=== PATIENT | male | born 1970 | race Caucasian/White ===

== ENCOUNTER → 2022-03-17 | Outpatient (CLI) | payer OTHER ==
[~2022-03-17] MED LIST: ASP81TEC PO; CINNAMON PO; MTF500T PO; NIAC250T17 PO; PRAV80TA2 PO; QUIN1TAB3 PO
[2022-03-17 14:37] VITALS: BP 130/70
--- NOTE | 2022-03-17 15:08 | Cardiology Stress Test Report ---
Stress Test Report Date of Procedure/Referring: Date of Procedure: Mar 17, 2022 PCP [facility] Admitting Physician Admitting Physician: Attending Physician: Andrea Emmanuel DO Indications: CP Baseline Heart Rate: 73 Baseline Blood Pressure: Blood Pressure Systolic: 130 Blood Pressure Diastolic: 70 Baseline EKG: Baseline EKG: NSR Summary/Conclusion: Summary: In summary, the patient started exercising with a baseline heart rate, blood pressure and EKG mentioned above Patient was able to exercise for a total of 3 minutes on Tristen protocol, METs 4.6 Maximum heart rate 158 Maximum blood pressure 252/67 Stress EKG, Minimal nondiagnostic changes Recovery EKG , Return to baseline Conclusion: 1. Good exercise tolerance for a total of 3 minutes on Tristen protocol, 4.6 METs, achieving 93 percent of maximum expected heart rate 2. Minimal nondiagnostic EKG changes with exercise returned to baseline during recovery 3. No arrhythmia was noted Copy Copies To 1: ANDREA EMMANUEL BASHAR J MD Mar 17, 2022 15:08
== END ==
LOC: CARD 14:17
PROVIDERS: ATTEND Pediatrics
DX: R07.89 Other chest pain (principal)
CPT/HCPCS: 93017

== ENCOUNTER 2022-11-25 15:24 | Inpatient (IN) | payer MEDICAID ==
[~2022-11-25] VITALS: Ht 175 cm; Wt 127.0 kg
[2022-11-25] MEDS ORDERED: fentaNYL INJ 100 MCG/2 ML AMP IVP ONE (15:45)
--- NOTE | 2022-11-25 15:57 | ED General ---
General Chief Complaint: Lower Extremity Stated Complaint: LEFT LEG PAIN/SWELLING/BLISTERS Nursing Triage Note: PT AMB TO TRIAGE. PT SENT FROM [facility]. PT HAS REDDEND L LOWER EXT. PT HAS REDDNESS, PAIN 10/10 SWELLING AND BLISTERS TO LOWER EXT. PT STATES HAS ALSO BEEN RUNNING A FEVER Source of Information: Patient, Other (Report and notes from clinic. Outside culture was reviewed. Verbal report was received from clinic staff.) Exam Limitations: No Limitations History of Present Illness Date Seen by Provider: Nov 25, 2022 Time Seen by Provider: 15:34 Initial Comments This 52-year-old gentleman presents to the emergency room as directed by the clinic for worsening cellulitis of the left leg. He reports pain and erythema started November 21. He has been treated with Bactrim without improvement. On Tuesday he had temperature of 101.9. He had subjective fever last night. He has marked edema of the left lower extremity and erythema up to the knee. He has some shallow slightly weeping wounds scattered over the lower extremity and a weeping wound on the tip of his great toe. There is a culture from drainage of the toe sent to us from the clinic. It grew Staph aureus with sensitivity pending and group A strep. Allergies and Home Medications Allergies Coded Allergies: codeine (Verified Allergy, Unknown, 10/11/08) Patient Home Medication List Home Medication List Reviewed: Yes Aspirin (Aspirin Ec 81 Mg) 81 Mg Tabec, 81 MG PO DAILY, (Reported) Entered as Reported by: BRADLY ALCARAZ on 07/15/101451 Metformin Hcl (Metformin 500 Mg) 500 Mg Tablet, 2 EACH PO BID WITH MEALS, (Reported) Entered as Reported by: BRADLY ALCARAZ on 07/15/101451 Niacin (Niacin) 250 Mg Tablet, 500 MG PO DAILY, (Reported) Entered as Reported by: BRADLY ALCARAZ on 07/15/101451 Pravastatin Sodium (Pravastatin Sodium) 80 Mg Tablet, 20 MG PO DAILY, (Reported) Entered as Reported by: BRADLY ALCARAZ on 07/15/101451 Quinapril/Hydrochlorothiazide (Accuretic 20-25 Mg Tablet) 1 Tab Tablet, 1 TAB PO DAILY, (Reported) Entered as Reported by: ABRAM RANDALL on 07/02/12 0910 [Cinnamon] , 500 MG PO BID, (Reported) Entered as Reported by: BRADLY ALCARAZ on 07/15/10 1452 Review of Systems Review of Systems Constitutional: see HPI EENTM: no symptoms reported Respiratory: no symptoms reported Cardiovascular: no symptoms reported Gastrointestinal: no symptoms reported Genitourinary: no symptoms reported Musculoskeletal: see HPI Skin: see HPI Psychiatric/Neurological: No Symptoms Reported Hematologic/Lymphatic: No Symptoms Reported Past Mzuceff-Trbgor-Qogefk Hx Patient Social History Tobacco Use?: No Substance use?: No Alcohol Use?: No Pt feels they are or have been: No Immunizations Up To Date First/Initial COVID19 Vaccinat: YES Second COVID19 Vaccination Liban: YES Past Medical History Surgery/Hospitalization HX: R ANKLE, L SHOULDER URETHRAL RELOCATION SURG. DIABETIC, HTN, NEUROPATHY Surgeries: Yes (Urethral relocation) Orthopedic (Left shoulder, right ankle) Respiratory: No Cardiac: Yes Hypertension Neurological: Yes Neuropathy Reproductive Disorders: No Genitourinary: Yes (Urethral relocation surgery) Gastrointestinal: No Musculoskeletal: No Endocrine: Yes Diabetes, Insulin dep, Diabetes, Non-Insulin dep HEENT: No Cancer: No Psychosocial: No Integumentary: Yes (History of cellulitis) Physical Exam-Suspected Sepsis Physical Exam Vital Signs Vital Signs - First Documented 11/25/22 11/25/22 15:35 18:39 Temp 36.7 Pulse 94 Resp 18 B/P (MAP) 114/69 (84) Pulse Ox 95 O2 Delivery Room Air Capillary Refill : Less Than 3 Seconds Blood Pressure Mean: 84 Height, Weight, BMI Height: '" Weight: lbs. oz. kg; 41.00 BMI Method: General Appearance: No Apparent Distress, WD/WN, Obese HEENT: PERRL/EOMI, Normal ENT Inspection Neck: Normal Inspection Respiratory: Lungs Clear, Normal Breath Sounds, No Accessory Muscle Use Cardiovascular: Regular Rate, Rhythm, No Murmur Extremity: Other (Marked edema and erythema of the left lower extremity below the knee with scattered shallow wounds with minor weeping. Pedal pulse palpable) Neurologic/Psychiatric: Alert, Oriented x3, No Motor/Sensory Deficits, Normal Mood/Affect Skin: normal color, warm/dry, other (See extremity exam) Focused Exam Lactate Level 11/25/22 17:00: Lactic Acid Level 1.92 Lactic Acid Level Progress/Results/Core Measures Suspected Sepsis SIRS Temperature: Pulse: 94 Respiratory Rate: 18 Laboratory Tests 11/25/22 16:04: White Blood Count 20.4H 11/26/22 05:05: White Blood Count 21.2H Blood Pressure 114 /69 Mean: 84 11/25/22 17:00: Lactic Acid Level 1.92 Laboratory Tests 11/25/22 16:04: Creatinine 2.06H, INR Comment 1.1, Platelet Count 331, Total Bilirubin 0.5 11/26/22 05:05: Creatinine 1.49H, Platelet Count 312 Results/Orders Lab Results Laboratory Tests Test 11/25/22 16:04 11/25/22 17:00 11/25/22 17:11 11/26/22 05:05 Range/Units White Blood Count 20.4 H 21.2 H 4.3-11.0 10^3/uL Red Blood Count 4.20 L 3.89 L 4.30-5.52 10^6/uL Hemoglobin 12.7 L 11.8 L 13.3-17.7 g/dL Hematocrit 37 L 34 L 40-54 % Mean Corpuscular Volume 88 88 80-99 fL Mean Corpuscular Hemoglobin 30 30 25-34 pg Mean Corpuscular Hemoglobin Concent 34 35 32-36 g/dL Red Cell Distribution Width 13.1 13.2 10.0-14.5 % Platelet Count 331 312 130-400 10^3/uL Mean Platelet Volume 10.6 11.9 9.0-12.2 fL Immature Granulocyte % (Auto) 1 1 % Neutrophils (%) (Auto) 86 H 86 H 42-75 % Lymphocytes (%) (Auto) 7 L 6 L 12-44 % Monocytes (%) (Auto) 6 5 0-12 % Eosinophils (%) (Auto) 0 1 0-10 % Basophils (%) (Auto) 0 1 0-10 % Neutrophils # (Auto) 17.4 H 18.2 H 1.8-7.8 10^3/uL Lymphocytes # (Auto) 1.5 1.3 1.0-4.0 10^3/uL Monocytes # (Auto) 1.2 H 1.1 H 0.0-1.0 10^3/uL Eosinophils # (Auto) 0.1 0.2 0.0-0.3 10^3/uL Basophils # (Auto) 0.1 0.1 0.0-0.1 10^3/uL Immature Granulocyte # (Auto) 0.2 H 0.3 H 0.0-0.1 10^3/uL Neutrophils % (Manual) 85 % Lymphocytes % (Manual) 9 % Monocytes % (Manual) 4 % Eosinophils % (Manual) 2 % Blood Morphology Comment NORMAL Prothrombin Time 14.1 12.2-14.7 SEC INR Comment 1.1 0.8-1.4 Activated Partial Thromboplast Time 38 H 24-35 SEC D-Dimer 1.77 H 0.00-0.49 UG/ML Sodium Level 138 133 L 135-145 MMOL/L Potassium Level 3.1 L 2.6 L 3.6-5.0 MMOL/L Chloride Level 94 L 94 L 98-107 MMOL/L Carbon Dioxide Level 32 27 21-32 MMOL/L Anion Gap 12 12 5-14 MMOL/L Blood Urea Nitrogen 29 H 26 H 7-18 MG/DL Creatinine 2.06 H 1.49 H 0.60-1.30 MG/DL Estimat Glomerular Filtration Rate 38 56 BUN/Creatinine Ratio 14 17 Glucose Level 159 H 199 H 70-105 MG/DL Calcium Level 10.3 H 9.2 8.5-10.1 MG/DL Corrected Calcium 10.5 H 8.5-10.1 MG/DL Total Bilirubin 0.5 0.1-1.0 MG/DL Aspartate Amino Transf (AST/SGOT) 24 5-34 U/L Alanine Aminotransferase (ALT/SGPT) 24 0-55 U/L Alkaline Phosphatase 75 40-136 U/L C-Reactive Protein High Sensitivity 30.75 H 28.92 H 0.00-0.50 MG/DL Total Protein 8.1 6.4-8.2 GM/DL Albumin 3.8 3.2-4.5 GM/DL Lactic Acid Level 1.92 0.50-2.00 MMOL/L Urine Color DARK YELLOW Urine Clarity CLEAR Urine pH 5.5 5-9 Urine Specific [place] >=1.030 1.016-1.022 Urine Protein 1+ H NEGATIVE Urine Glucose (UA) NEGATIVE NEGATIVE Urine Ketones NEGATIVE NEGATIVE Urine Nitrite NEGATIVE NEGATIVE Urine Bilirubin NEGATIVE NEGATIVE Urine Urobilinogen 1.0 < = 1.0 MG/DL Urine Leukocyte Esterase TRACE H NEGATIVE Urine RBC (Auto) NEGATIVE NEGATIVE Urine RBC NONE /HPF Urine WBC 5-10 H /HPF Urine Squamous Epithelial Cells 5-10 /HPF Urine Crystals PRESENT H /LPF Urine Amorphous Sediment MOD MIRIAM URATES H /LPF Urine Bacteria FEW H /HPF Urine Casts PRESENT /LPF Urine Hyaline Casts 0-2 H /LPF Urine Mucus SMALL H /LPF Urine Culture Indicated CULTURE PENDING My Orders Orders - GISEL REYNOSO MD Cbc With Automated Diff (11/25/22 15:34) Comprehensive Metabolic Panel (11/25/22 15:34) Hs C Reactive Protein (11/25/22 15:34) Ed Iv/Invasive Line Start (11/25/22 15:34) Us Venous Lower Ext Lt (11/25/22 15:45) Fentanyl Inj (Sublimaze Injection) (11/25/22 15:45) Manual Differential (11/25/22 16:04) Blood Culture (11/25/22 16:28) Sputum Culture (11/25/22 16:28) Urinalysis (11/25/22 16:28) Urine Culture (11/25/22 16:28) Protime With Inr (11/25/22 16:28) Partial Thromboplastin Time (11/25/22 16:28) Chest 1 View, Ap/Pa Only (11/25/22 16:28) Vital Signs Adult Sepsis Patie Q15M (11/25/22 16:28) O2 (11/25/22 16:28) Remove Rings In Anticipation O (11/25/22 16:28) Lactic Acid Analyzer (11/25/22 16:28) Fibrin Degradation Products (11/25/22 16:35) Ceftriaxone Iv/Im (Rocephin Iv/Im) (11/25/22 17:14) Potassium Chloride (Tablet) (Klor Con Ta (11/25/22 17:45) Ns Iv 1000 Ml (Sodium Chloride 0.9%) (11/25/22 17:45) Vancomycin Injection (Vancomycin Injecti (11/25/22 17:45) Medications Given in ED Vital Signs/I&O 11/25/22 11/25/22 11/26/22 19:50 23:36 03:36 Temp 37.1 36.3 Pulse 94 89 Resp 17 16 B/P (MAP) 117/58 (77) 138/74 (95) Pulse Ox 95 98 O2 Delivery Room Air Room Air Room Air Capillary Refill : Less Than 3 Seconds Blood Pressure Mean: 84 Progress Note : Progress Note Pain was treated with fentanyl. Septic work-up was pursued. Blood cultures and lactic acid were obtained. Rocephin was given for initial treatment of cellulitis and sepsis followed by vancomycin. Vancomycin was selected as the staff species did not yet have sensitivity results. Rocephin was selected because of the positive strep culture from the clinic. Labs were reviewed and interpreted in their entirety. Marked leukocytosis was noted with a WBC of 21. The remainder of the CBC was relatively unremarkable. D-dimer was elevated and was followed with venous ultrasound. No DVT was noted. CMP review revealed elevated creatinine of 2 with a reduced GFR. Baseline renal function is not known. Hydration was initiated with a liter of normal saline bolus. Lactic acid was normal. CRP was markedly elevated at 30. Potassium was low at 3.1 and oral replacement was ordered. Remainder of CMP was relatively unremarkable. Case was discussed with Dr. Hernandez, admitting physician from [facility]. Bridging orders were placed by me at admission. Patient elects full CODE STATUS. Diagnostic Imaging Diagonstic Imaging: Ultrasound Plain Films/CT/US/NM/MRI: leg Comments NAME: BRYAN KENYON MED REC#: [id number] PT STATUS: REG ER : 1970 PHYSICIAN: GISEL REYNOSO MD ADMIT DATE: 11/25/22/ER Draft Date of Exam:11/25/22 US VENOUS LOWER EXT LT INDICATION: Left leg pain and edema COMPARISON: None TECHNIQUE: Duplex, shelton-scale and color-flow imaging of the left lower extremity venous system was performed. FINDINGS: The common femoral vein, superficial femoral vein, profunda femoris, and popliteal veins are normal. These vessels show normal compressibility, color flow, and doppler augmentation. The deep calf veins, although not very well seen, demonstrate no distinct intraluminal thrombus. IMPRESSION: Negative venous Doppler of the left lower extremity. Dictated on workstation # [id number] Dict: 11/25/22 1722 Trans: 11/25/22 1724 CVB [id number] Interpreted by: KATRINA ABEBE MD Diagonstic Imaging: Xray Plain Films/CT/US/NM/MRI: chest Comments NAME: BRYAN KENYON MED REC#: [id number] PT STATUS: REG ER : 1970 PHYSICIAN: GISEL REYNOSO MD ADMIT DATE: 11/25/22/ER Signed Date of Exam:11/25/22 CHEST 1 VIEW, AP/PA ONLY INDICATION: Sepsis and leukocytosis. Frontal chest obtained at 5:00 p.m. FINDINGS: Heart and mediastinal silhouette are normal in appearance. The lungs are clear. There is no pneumothorax or pleural fluid. There is an old left clavicle fracture with hardware in place. There are old left-sided rib fractures. IMPRESSION: No acute process in the chest. Dictated by: Dictated on workstation # [id number] Dict: 11/25/221703 Trans: 11/25/221712 [id number] Interpreted by: ABILIO SOTO MD Electronically signed by: ABILIO SOTO MD 11/25/221712 Departure Communication (Admissions) Time/Spoke to Admitting Phy: 17:31 Dr. Hernandez Impression Primary Impression: Sepsis Qualified Codes: A40.0 - Sepsis due to Streptococcus, group A Additional Impressions: Left leg cellulitis Hypokalemia Renal insufficiency Disposition: ADMITTED INPATIENT Condition: Stable Admissions Decision to Admit Reason: Admit from ER (General) Decision to Admit/Date: Nov 25, 2022 Time/Decision to Admit Time: 17:31 Departure-Patient Inst. Referrals: [facility] (PCP/Family) Primary Care Physician Copy Copies To 1: [facility]/GISEL SILVA MD Nov 25, 2022 15:57
[2022-11-25 16:11] LABS: BASOPHILS # (AUTO) 0.1 10^3/uL (0.0-0.1); BASOPHILS % (AUTO) 0 % (0-10); EOSINOPHILS # (AUTO) 0.1 10^3/uL (0.0-0.3); EOSINOPHILS % (AUTO) 0 % (0-10); HEMATOCRIT 37 % (40-54); HEMOGLOBIN 12.7 g/dL (13.3-17.7); LYMPHOCYTES # (AUTO) 1.5 X 10^3 (1.0-4.0); LYMPHOCYTES % (AUTO) 7 % (12-44); MEAN CORPUSCULAR HEMOGLOBIN 30 pg (25-34); MEAN CORPUSCULAR HGB CONC 34 g/dL (32-36); MEAN CORPUSCULAR VOLUME 88 fL (80-99); MEAN PLATELET VOLUME 10.6 fL (9.0-12.2); MONOCYTES # (AUTO) 1.2 X 10^3 (0.0-1.0); MONOCYTES % (AUTO) 6 % (0-12); NEUTROPHILS # (AUTO) 17.4 X 10^3 (1.8-7.8); NEUTROPHILS % (AUTO) 86 % (42-75); PLATELET COUNT 331 10^3/uL (130-400); WHITE BLOOD COUNT 20.4 10^3/uL (4.3-11.0)
[2022-11-25 16:30] LABS: EOSINOPHILS % (MANUAL) 2 %; LYMPHOCYTES % (MANUAL) 9 %; MONOCYTES % (MANUAL) 4 %; NEUTROPHILS % (MANUAL) 85 %; RBC MORPH NORMAL
[2022-11-25 16:33] LABS: ALBUMIN 3.8 GM/DL (3.2-4.5); POTASSIUM 3.1 MMOL/L (3.6-5.0)
[2022-11-25 16:34] LABS: CALCIUM 10.3 MG/DL (8.5-10.1)
[2022-11-25 16:36] LABS: TOTAL PROTEIN 8.1 GM/DL (6.4-8.2)
[2022-11-25 16:38] LABS: BILIRUBIN,TOTAL 0.5 MG/DL (0.1-1.0)
[2022-11-25 16:39] LABS: CREATININE SERUM 2.06 MG/DL (0.60-1.30)
--- NOTE | 2022-11-25 17:07 | Diagnostic Imaging Report ---
INDICATION: Sepsis and leukocytosis. Frontal chest obtained at 5:00 p.m. FINDINGS: Heart and mediastinal silhouette are normal in appearance. The lungs are clear. There is no pneumothorax or pleural fluid. There is an old left clavicle fracture with hardware in place. There are old left-sided rib fractures. IMPRESSION: No acute process in the chest. Dictated by: Dictated on workstation # [id number]
[2022-11-25] MEDS ORDERED: cefTRIAXone IV/IM 1,000 MG in NS (IVPB) 50 ML IV STA (17:14)
[2022-11-25 17:23] LABS: BILIRUBIN,URINE NEGATIVE (NEGATIVE); CLARITY,URINE CLEAR; COLOR,URINE DARK YELLOW; GLUCOSE, URINE (UA) NEGATIVE (NEGATIVE); KETONES,URINE NEGATIVE (NEGATIVE); LEUKOCYTE ESTERASE ,URINE TRACE (NEGATIVE); NITRITE,URINE NEGATIVE (NEGATIVE); PH,URINE 5.5 (5-9); PROTEIN,URINE 1+ (NEGATIVE)
--- NOTE | 2022-11-25 17:24 | Diagnostic Imaging Report ---
INDICATION: Left leg pain and edema COMPARISON: None TECHNIQUE: Duplex, shelton-scale and color-flow imaging of the left lower extremity venous system was performed. FINDINGS: The common femoral vein, superficial femoral vein, profunda femoris, and popliteal veins are normal. These vessels show normal compressibility, color flow, and doppler augmentation. The deep calf veins, although not very well seen, demonstrate no distinct intraluminal thrombus. IMPRESSION: Negative venous Doppler of the left lower extremity. Dictated by: Dictated on workstation # [id number]
[2022-11-25 17:32] LABS: INR 1.1 (0.8-1.4); PROTHROMBIN TIME PATIENT 14.1 SEC (12.2-14.7)
[2022-11-25 17:35] LABS: AMORPHOUS SEDIMENT,UR MOD AMOR URATES /LPF; BACTERIA,URINE FEW /HPF; HYALINE CASTS, URINE 0-2 /LPF
[2022-11-25 17:35] LABS: FIBRIN DEGRADATION PRODUCTS 1.77 UG/ML (0.00-0.49)
[2022-11-25] MEDS ORDERED: KCL 10 MEQ TAB (MICRO K) PO ONE (17:45)
[2022-11-25] MEDS ORDERED: NS IV 1000 ML 1,000 ML IV SCH (17:45)
[2022-11-25 19:12] VITALS: BP 122/61
[2022-11-25] MEDS: VANCOMYCIN INJECTION 1,000 MG in NS (IVPB) 250 ML IV SCH ×2 (20:00→20:01)
[2022-11-25] MEDS ORDERED: HYDROcodone/APAP 5 MG/325 MG (LORTAB) TAB ONE (20:16)
[2022-11-25] MEDS: HYDROcodone/APAP 5 MG/325 MG (LORTAB) TAB PO PRN (20:17)
[2022-11-25] MEDS ORDERED: VANCOMYCIN INJECTION 0.1 MG in NS (IVPB) 250 ML IV SCH (22:15)
[2022-11-25] MEDS: LACTATED RINGERS 1,000 ML IV SCH (22:59)
[2022-11-25 23:36] VITALS: BP 117/58
[2022-11-26] MEDS: HYDROcodone/APAP 5 MG/325 MG (LORTAB) TAB PO PRN ×2 (01:10→08:46)
[2022-11-26 03:36] VITALS: BP 138/74
[2022-11-26] MEDS: LACTATED RINGERS 1,000 ML IV SCH (05:14)
--- NOTE | 2022-11-26 05:33 | History & Physical-Hospitalist ---
History of Present Illness HPI/Chief Complaint CC: Left leg cellulitis HPI: This is a 52-year-old male who presented with left leg cellulitis. The severity of it required IV antibiotics. Dr. Santiago will be consulted in case abscess formation has occurred. Patient denies any new issues since admission. Venous Doppler did not show any DVT although D-dimer was elevated so he will be maintained on DVT prophylaxis. Source: patient Exam Limitations: no limitations Date Seen 11/26/22 Time Seen by a Provider: 11:00 Attending Physician [facility] PCP Admitting Physician: Tawny Hernandez MD Attending Physician: Tawny Hernandez MD Referring Physician Date of Admission Nov 25, 2022 at 18:52 Home Medications & Allergies Home Medications Reviewed patient Home Medication Reconciliation performed by pharmacy medication reconciliations light technician and/or nursing. Patients Allergies have been reviewed. Allergies Allergies Coded Allergies codeine (Verified Allergy, Unknown, 10/11/08) Past Kwjhycs-Bacwcr-Pxqkma Hx Patient Social History Marrital Status: single Employed/Student: unemployed Tobacco Use?: No Tobacco type used: Cigarettes Smoking Status: Former Smoker Smokeless type used: Chew Smokeless Tobacco Frequency: Current Everyday User Use of E-Cig and/or Vaping dev: No Substance use?: No Alcohol Use?: No Pt feels they are or have been: No Immunizations Up To Date Date of Influenza Vaccine: Mar 20, 2012 First/Initial COVID19 Vaccinat: YES Second COVID19 Vaccination Liban: YES Date of Pneumonia Vaccine: Apr 20, 2012 Current Status Advance Directives: No Communicates: Verbally Primary Language: Iranian Preferred Spoken Language: Iranian Is interpretation needed?: No Implanted or Applied Medical D: None Past Medical History Diabetes, Non-Insulin dep Review of Systems Constitutional: see HPI Skin: rash Physical Exam Physical Exam Vital Signs Vital Signs - First Documented 11/25/22 11/25/22 11/26/22 15:35 18:39 07:47 Temp 36.7 Pulse 94 Resp 18 B/P (MAP) 114/69 (84) Pulse Ox 95 O2 Delivery Room Air O2 Flow Rate 2.00 Capillary Refill : Less Than 3 Seconds Height, Weight, BMI Height: '" Weight: lbs. oz. kg; 41.46 BMI Method: General Appearance: No Apparent Distress, Chronically ill Eyes: Right Eye Normal Inspection, Right Eye PERRL HEENT: PERRL/EOMI, Normal ENT Inspection, Pharynx Normal, Moist Mucous Membranes Neck: Full Range of Motion, Normal Inspection, Non Tender Respiratory: Chest Non Tender, Lungs Clear, Normal Breath Sounds, No Accessory Muscle Use, No Respiratory Distress Cardiovascular: Regular Rate, Rhythm, No Edema, No Gallop, No JVD, No Murmur, Normal Peripheral Pulses Gastrointestinal: Normal Bowel Sounds, No Organomegaly, No Pulsatile Mass, Non Tender, Soft Back: Normal Inspection, No CVA Tenderness, No Vertebral Tenderness Extremity: Normal Capillary Refill, Normal Inspection, Normal Range of Motion, Non Tender, No Calf Tenderness, Calf Tenderness, Inflammation, Pedal Edema Neurologic/Psychiatric: Alert, Oriented x3, No Motor/Sensory Deficits, Normal Mood/Affect Skin: Normal Color, Warm/Dry, Rash (Left leg) Lymphatic: No Adenopathy Results Results/Procedures Labs Laboratory Tests 11/25/22 16:04 11/26/22 05:05 Patient resulted labs reviewed. Assessment/Plan Admission Diagnosis Assessment: Severe left leg cellulitis Diabetes Obesity NOELLE on CPAP Plan: IV antibiotics Dr. Santiago consult [facility] for DVT prophylaxis Admission Status: Inpatient Order (span 2 midnights) Reason for Inpatient Admission: cellulitis DAVID LEVINE DO Nov 26, 2022 05:33
[2022-11-26 05:51] LABS: BASOPHILS # (AUTO) 0.1 10^3/uL (0.0-0.1); BASOPHILS % (AUTO) 1 % (0-10); EOSINOPHILS # (AUTO) 0.2 10^3/uL (0.0-0.3); EOSINOPHILS % (AUTO) 1 % (0-10); HEMATOCRIT 34 % (40-54); HEMOGLOBIN 11.8 g/dL (13.3-17.7); LYMPHOCYTES # (AUTO) 1.3 10^3/uL (1.0-4.0); LYMPHOCYTES % (AUTO) 6 % (12-44); MEAN CORPUSCULAR HEMOGLOBIN 30 pg (25-34); MEAN CORPUSCULAR HGB CONC 35 g/dL (32-36); MEAN CORPUSCULAR VOLUME 88 fL (80-99); MEAN PLATELET VOLUME 11.9 fL (9.0-12.2); MONOCYTES # (AUTO) 1.1 10^3/uL (0.0-1.0); MONOCYTES % (AUTO) 5 % (0-12); NEUTROPHILS # (AUTO) 18.2 10^3/uL (1.8-7.8); NEUTROPHILS % (AUTO) 86 % (42-75); PLATELET COUNT 312 10^3/uL (130-400); WHITE BLOOD COUNT 21.2 10^3/uL (4.3-11.0)
[2022-11-26 06:27] LABS: CALCIUM 9.2 MG/DL (8.5-10.1); CREATININE SERUM 1.49 MG/DL (0.60-1.30); POTASSIUM 2.6 MMOL/L (3.6-5.0)
[2022-11-26] MEDS ORDERED: CATHETER FLUSH 10 ML SYR IVP PRN (07:30)
[2022-11-26 07:47] VITALS: BP 127/63
[2022-11-26] MEDS: ENOXAPARIN 40 MG/0.4 ML (LOVENOX) SYR SC SCH ×2 (11:05→22:11)
[2022-11-26] MEDS: KCL 20 MEQ TAB (K-DUR) PO SCH ×3 (11:05→17:32)
[2022-11-26] MEDS ORDERED: AMLO-251 PO (11:08)
[2022-11-26] MEDS ORDERED: PANT40TA52 PO (11:08)
[2022-11-26] MEDS ORDERED: SULF-221 PO (11:08)
[2022-11-26] MEDS ORDERED: DULO60CA59 PO (11:08)
[2022-11-26] MEDS ORDERED: CETI10TA17 PO (11:08)
[2022-11-26] MEDS ORDERED: INSU100I88 SC (11:08)
[2022-11-26] MEDS ORDERED: INSU100I48 SC (11:08)
[2022-11-26] MEDS ORDERED: ROSU10TA28 PO (11:08)
[2022-11-26] MEDS ORDERED: METF-399 PO (11:08)
[2022-11-26] MEDS ORDERED: ASPI-1238 PO (11:08)
[2022-11-26] MEDS ORDERED: PREG150C46 PO (11:08)
[2022-11-26] MEDS ORDERED: TIRZ7.5P SQ (11:08)
[2022-11-26] MEDS ORDERED: CHOL-34 PO (11:08)
[2022-11-26] MEDS ORDERED: HYDR25TA4 PO (11:08)
[2022-11-26] MEDS ORDERED: CYAN500011 PO (11:08)
[2022-11-26 11:23] VITALS: BP 118/72
--- NOTE | 2022-11-26 11:51 | Consultation - Surgery ---
History of Present Illness History of Present Illness Patient Consulted On(celia/time) 11/26/22 11:46 Time Seen by Provider: 11:10 History of Present Illness Surgery asked to consult regarding left leg cellulitis, possible abscesx. HPI per ED: This 52-year-old gentleman presents to the emergency room as directed by the clinic for worsening cellulitis of the left leg. He reports pain and erythema started Tuesday, November 21. He has been treated with Bactrim without improvement. On Tuesday he had temperature of 101.9. He had subjective fever last night. He has marked edema of the left lower extremity and erythema up to the knee. He has some shallow slightly weeping wounds scattered over the lower extremity and a weeping wound on the tip of his great toe. There is a culture from drainage of the toe sent to us from the clinic. It grew Staph aureus with sensitivity pending and group A strep. When I spoke to pt he stated it started on Tuesday and he denied any trauma to the area or insect bite. He stated it was mildly red and then he went to bed and woke up with it spread over leg. He states he has never had anything like this before. He has a draining toe, but is adamant that it did not start from the toe. He points to middle of smith, where it started. He has a few scabs on his legs. He thinks the two on the smith are near where the redness started but didn't see pus or anything around them. He has two other scabbed areas, but stated these occurred after the redness and swelling. His pain is minimal, worse when leg is touched but doesn't really hurt to walk. Allergies and Home Medications Allergies Coded Allergies: codeine (Verified Allergy, Unknown, 10/11/08) Patient Home Medication List Home Medication List Reviewed: Yes Amlodipine Besylate (Amlodipine Besylate) 10 Mg Tablet, 10 MG PO DAILY, (Reported) Entered as Reported by: ANDREA GARVIN on 11/26/221107 Last Action: Reviewed Aspirin (Aspirin EC) 81 Mg Tablet.dr, 81 MG PO DAILY, (Reported) Entered as Reported by: ANDREA GARVIN on 11/26/221107 Last Action: Reviewed Cetirizine HCl (Cetirizine HCl) 10 Mg Tablet, 10 MG PO DAILY, (Reported) Entered as Reported by: ANDREA GARVIN on 11/26/221107 Last Action: Reviewed Cholecalciferol (Vitamin D3) (Vitamin D3) 25 Mcg (1000 Unit) Tablet, 25 MCG PO DAILY, (Reported) Entered as Reported by: ANDREA GARVIN on 11/26/221107 Last Action: Reviewed Cyanocobalamin (Vitamin B-12) (Vitamin B-12) 5,000 Mcg Capsule, 5,000 MCG PO DAILY, (Reported) Entered as Reported by: ANDREA GARVIN on 11/26/221107 Last Action: Reviewed Duloxetine HCl (Duloxetine HCl) 60 Mg Capsule.dr, 60 MG PO DAILY, (Reported) Entered as Reported by: ANDREA GARVIN on 11/26/221107 Last Action: Reviewed Hydrochlorothiazide (Hydrochlorothiazide) 25 Mg Tablet, 25 MG PO DAILY, (Reported) Entered as Reported by: ANDREA GARVIN on 11/26/221107 Last Action: Reviewed Insulin Detemir (Levemir Flexpen) 100 Unit/Ml (3 Ml) Insuln.pen, 65 UNITS SC HS, (Reported) Entered as Reported by: ANDREA GARVIN on 11/26/221107 Last Action: Reviewed Insulin Lispro (Insulin Lispro Kwikpen U-100) 100 Unit/Ml Insuln.pen, 11 UNITS SC AC, (Reported) Entered as Reported by: ANDREA GARVIN on 11/26/221107 Last Action: Reviewed Metformin HCl (Metformin HCl) 1,000 Mg Tablet, 1,000 MG PO BID, (Reported) Entered as Reported by: ANDREA GARVIN on 11/26/221107 Last Action: Reviewed Pantoprazole Sodium (Pantoprazole Sodium) 40 Mg Tablet.dr, 40 MG PO DAILY, (Reported) Entered as Reported by: ANDREA GARVIN on 11/26/221107 Last Action: Reviewed Pregabalin (Pregabalin) 150 Mg Capsule, 150 MG PO BID, (Reported) Entered as Reported by: ANDREA GARVIN on 11/26/221107 Last Action: Reviewed Rosuvastatin Calcium (Rosuvastatin Calcium) 10 Mg Tablet, 10 MG PO HS, (Reported) Entered as Reported by: ANDREA GARVIN on 11/26/221107 Last Action: Reviewed Sulfamethoxazole/Trimethoprim (Bactrim Ds Tablet) 800 Mg-160 Mg Tablet, 1 EA PO BID, (Reported) Entered as Reported by: ANDREA GARVIN on 11/26/221107 Last Action: Reviewed Tirzepatide (Mounjaro) 7.5 Mg/0.5 Ml Pen.injctr, 7.5 MG SQ WED, (Reported) Entered as Reported by: ANDREA GARVIN on 11/26/221107 Last Action: Reviewed Discontinued Medications Aspirin (Aspirin Ec 81 Mg) 81 Mg Tabec, 81 MG PO DAILY, (Reported) Discontinued Reason: No Longer Taking Entered as Reported by: BRADLY ALCARAZ on 07/15/101451 Last Action: Discontinued Metformin Hcl (Metformin 500 Mg) 500 Mg Tablet, 2 EACH PO BID WITH MEALS, (Reported) Discontinued Reason: No Longer Taking Entered as Reported by: BRADLY ALCARAZ on 07/15/101451 Last Action: Discontinued Niacin (Niacin) 250 Mg Tablet, 500 MG PO DAILY, (Reported) Discontinued Reason: No Longer Taking Entered as Reported by: BRADLY ALCARAZ on 07/15/101451 Last Action: Discontinued Pravastatin Sodium (Pravastatin Sodium) 80 Mg Tablet, 20 MG PO DAILY, (Reported) Discontinued Reason: No Longer Taking Entered as Reported by: BRADLY ALCARAZ on 07/15/101451 Last Action: Discontinued Quinapril/Hydrochlorothiazide (Accuretic 20-25 Mg Tablet) 1 Tab Tablet, 1 TAB PO DAILY, (Reported) Discontinued Reason: No Longer Taking Entered as Reported by: ABRAM RANDALL on 07/02/12 09 Last Action: Discontinued [Cinnamon] , 500 MG PO BID, (Reported) Discontinued Reason: No Longer Taking Entered as Reported by: BRADLY ALCARAZ on 07/15/101451 Last Action: Discontinued Past Iwxgyxm-[id number]-Fsdwnf Hx Patient Social History Smoking Status: Former Smoker Alcohol Use?: No Immunizations Up To Date Date of Pneumonia Vaccine: Apr 20, 2012 Date of Influenza Vaccine: Mar 20, 2012 Surgeries History of Surgeries: Yes (Urethral relocation) Surgeries: Orthopedic (Left shoulder, right ankle) Respiratory History of Respiratory Disorde: No Cardiovascular History of Cardiac Disorders: Yes Cardiac Disorders: Hypertension Neurological History of Neurological Disord: Yes Neurological Disorders: Neuropathy Reproductive System Hx Reproductive Disorders: No Genitourinary History of Genitourinary Disor: Yes (Urethral relocation surgery) Gastrointestinal History of Gastrointestinal Di: No Musculoskeletal History of Musculoskeletal Dis: No Endocrine History of Endocrine Disorders: Yes Endocrine Disorders: Diabetes, Insulin dep, Diabetes, Non-Insulin dep HEENT History of HEENT Disorders: No Cancer History of Cancer: No Psychosocial History of Psychiatric Problem: No Integumentary History of Skin or Integumenta: Yes (History of cellulitis) Family Medical History Significant Family History: Diabetes, Hypertension Review of Systems-General Constitutional: No chills, No diaphoresis; malaise EENTM: No blurred vision, No double vision, No epistaxis, No throat swelling Respiratory: No cough, No dyspnea on exertion Cardiovascular: No chest pain, No palpitations Gastrointestinal: No abdominal pain, No jaundice, No nausea, No vomiting Genitourinary: No dysuria, No frequency, No hematuria Musculoskeletal: joint pain, joint swelling, muscle pain, muscle stiffness Skin: No change in color (other than left leg), No change in hair/nails Psychiatric/Neurological: Denies Anxiety, Denies Depressed, Denies Seizure Physical Exam-General Problems Physical Exam Vital Signs Vital Signs - First Documented 11/25/22 11/25/22 11/26/22 15:35 18:39 07:47 Temp 36.7 Pulse 94 Resp 18 B/P (MAP) 114/69 (84) Pulse Ox 95 O2 Delivery Room Air O2 Flow Rate 2.00 Capillary Refill : Less Than 3 Seconds General Appearance: no apparent distress, obese Eyes: Bilateral Eye PERRL, Bilateral Eye EOMI HEENT: pharynx normal; No scleral icterus (R), No scleral icterus (L) Neck: non-tender, supple Respiratory: lungs clear, normal breath sounds, no respiratory distress, no accessory muscle use Cardiovascular: regular rate, rhythm, no murmur Gastrointestinal: non tender, soft, no organomegaly, hernia (large umbilical, incarcerated and recurrent) Rectal: deferred Back: no CVA tenderness Extremities: normal inspection (right leg), pedal edema (left leg), other (left foot is swollen, but not red. 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, alert, normal mood/affect, oriented x 3 Skin: normal color, warm/dry Lymphatic: no adenopathy (neck, axilla or groin) Data Review Labs Laboratory Tests 11/25/22 16:04: White Blood Count 20.4H, Red Blood Count 4.20L, Hemoglobin 12.7L, Hematocrit 37L , Mean Corpuscular Volume 88, Mean Corpuscular Hemoglobin 30, Mean Corpuscular Hemoglobin Concent 34, Red Cell Distribution Width 13.1, Platelet Count 331, Mean Platelet Volume 10.6, Immature Granulocyte % (Auto) 1, Neutrophils (%) (Auto) 86H, Lymphocytes (%) (Auto) 7L, Monocytes (%) (Auto) 6, Eosinophils (%) (Auto) 0, Basophils (%) (Auto) 0, Neutrophils # (Auto) 17.4H, Lymphocytes # (Au to) 1.5, Monocytes # (Auto) 1.2H, Eosinophils # (Auto) 0.1, Basophils # (Auto) 0.1, Immature Granulocyte # (Auto) 0.2H, Neutrophils % (Manual) 85, Lymphocytes % (Manual) 9, Monocytes % (Manual) 4, Eosinophils % (Manual) 2, Blood Morphology Comment NORMAL, Prothrombin Time 14.1, INR Comment 1.1, Activated Partial Thromboplast Time 38H, D-Dimer 1.77H, Sodium Level 138, Potassium Level 3.1L, Chloride Level 94L, Carbon Dioxide Level 32, Anion Gap 12, Blood Urea Nitrogen 29H, Creatinine 2.06H, Estimat Glomerular Filtration Rate 38, BUN/Creatinine Ratio 14, Glucose Level 159H, Calcium Level 10.3H, Corrected Calcium 10.5H, Total Bilirubin 0.5, Aspartate Amino Transf (AST/SGOT) 24, Alanine Aminotransferase (ALT/SGPT) 24, Alkaline Phosphatase 75, C-Reactive Protein High Sensitivity 30.75H, Total Protein 8.1, Albumin 3.8 11/25/22 17:00: Lactic Acid Level 1.92 11/25/22 17:11: Urine Color DARK YELLOW, Urine Clarity CLEAR, Urine pH 5.5, Urine Specific Holland >=1.030, Urine Protein 1+H, Urine Glucose (UA) NEGATIVE, Urine Ketones NEGATIVE, Urine Nitrite NEGATIVE, Urine Bilirubin NEGATIVE, Urine Urobilinogen 1.0, Urine Leukocyte Esterase TRACEH, Urine RBC (Auto) NEGATIVE, Urine RBC NONE, Urine WBC 5-10H, Urine Squamous Epithelial Cells 5-10, Urine Crystals PRESENTH, Urine Amorphous Sediment MOD MIRIAM URATESH, Urine Bacteria FEWH, Urine Casts PRESENT, Urine Hyaline Casts 0-2H, Urine Mucus SMALLH, Urine Culture Indicated CULTURE PENDING 11/26/22 05:05: White Blood Count 21.2H, Red Blood Count 3.89L, Hemoglobin 11.8L, Hematocrit 34L , Mean Corpuscular Volume 88, Mean Corpuscular Hemoglobin 30, Mean Corpuscular Hemoglobin Concent 35, Red Cell Distribution Width 13.2, Platelet Count 312, Mean Platelet Volume 11.9, Immature Granulocyte % (Auto) 1, Neutrophils (%) (Auto) 86H, Lymphocytes (%) (Auto) 6L, Monocytes (%) (Auto) 5, Eosinophils (%) (Auto) 1, Basophils (%) (Auto) 1, Neutrophils # (Auto) 18.2H, Lymphocytes # (Auto) 1.3, Monocytes # (Auto) 1.1H, Eosinophils # (Auto) 0.2, Basophils # (Auto) 0.1, Immature Granulocyte # (Auto) 0.3H, Sodium Level 133L, Potassium Level 2.6L, Chloride Level 94L, Carbon Dioxide Level 27, Anion Gap 12, Blood Urea Nitrogen 26H, Creatinine 1.49H, Estimat Glomerular Filtration Rate 56, BUN/Creatinine Ratio 17, Glucose Level 199H, Calcium Level 9.2, C-Reactive Protein High Sensitivity 28.92H 11/26/22 09:31: Glucometer 225H Radiology Date of Exam:11/25/22 US VENOUS LOWER EXT LT INDICATION: Left leg pain and edema COMPARISON: None TECHNIQUE: Duplex, shelton-scale and color-flow imaging of the left lower extremity venous system was performed. FINDINGS: The common femoral vein, superficial femoral vein, profunda femoris, and popliteal veins are normal. These vessels show normal compressibility, color flow, and doppler augmentation. The deep calf veins, although not very well seen, demonstrate no distinct intraluminal thrombus. IMPRESSION: Negative venous Doppler of the left lower extremity. Dictated by: Dictated on workstation # [id number] Dict: 11/25/22 1722 Trans: 11/26/2212 CVB [id number] Interpreted by: KATRINA ABEBE MD Electronically signed by: KATIRNA ABEBE MD 06/09/23 0812 Assessment/Plan Assessment/Plan Assessment/Plan Left leg Cellulitis and edema DM and HTN Leukocytosis Hyponatremia Hypokalemia Acute renal insufficiency Pt has pretty severe edema and erythema of the left lower leg; with a WBC of 21K. The US of leg mainly only looked for DVT with not enough attention paid to the subcutaneous tissue. I will order CT of the left leg (discussed this with radiologist and Dr. Rizo) to see if there is a fluid collection (indicating abscess) and to make sure there is no subcutaneous air/gas (rule out necrotizing fasciitis). Continue ABX, IV fluids, pain control and max medical management. I told pt to elevate leg above heart when he is lying down in bed. All questions answered to his satisfaction. He is currently getting electrolyte replacement and needs to be on free water restriction. Will monitor labs. IVET REDDY DO Nov 26, 2022 11:51
[2022-11-26] MEDS ORDERED: NS 100 ML (IVPB) BAG IV ONE (12:00)
[2022-11-26] MEDS ORDERED: HOLD METFORMIN - RECEIVED CONTRAST 20 ML VIAL IV SCH (12:00)
[2022-11-26] MEDS ORDERED: IOHEXOL 350 MG/ML 100 ML (OMNIPAQUE 350) VIAL IV ONE (12:00)
[2022-11-26] MEDS: fentaNYL INJ 100 MCG/2 ML AMP IV PRN ×2 (12:25→20:56)
--- NOTE | 2022-11-26 15:00 | Diagnostic Imaging Report ---
PROCEDURE: CT left lower extremity with contrast. TECHNIQUE: Multiple axial images of the left lower extremity were obtained after intravenous administration of iodinated contrast. Auto Exposure Controls were utilized during the CT exam to meet ALARA standards for radiation dose reduction. INDICATION: Cellulitis. Evaluate for necrotizing fasciitis. COMPARISON: None. FINDINGS: Left lower extremity was evaluated from the knee down to the ankle. No acute fracture is seen in the left tibia and fibula. Alignment appears normal. There are mild degenerative changes in the medial compartment of the knee. There is a small left knee joint effusion. There is a small Guerrero's cyst. No cortical erosions or periosteal reaction is seen. The musculature of the left leg demonstrates no focal atrophy. There are no rim-enhancing fluid collections. No soft tissue gas is seen throughout the left leg. There is [id number] edema with associated enhancement in the subcutaneous fat about the left leg, more pronounced at the anterolateral aspect. There may be mild edema in the anterior tibialis muscle. IMPRESSION: 1. Findings consistent with cellulitis of the left leg. There may be mild edema in the anterior tibialis muscle which may be reactive or due to a myositis. No rim-enhancing fluid collections or soft tissue gas is seen. 2. Mild degenerative change in the left knee with a small joint effusion. No acute osseous abnormality is seen in the left leg. Dictated by: Dictated on workstation # [id number]
[2022-11-26 15:48] VITALS: BP 135/74
[2022-11-26] MEDS ORDERED: VANCOMYCIN 1,750 MG/NS 500 ML IVPB IV SCH ×2 (16:00)
[2022-11-26] MEDS: cefTRIAXone 1 GM/NS 50 ML IVPB IV SCH ×2 (18:04)
[2022-11-26 19:35] VITALS: BP 121/72
[2022-11-27] VITALS (7 sets, daily range): BP systolic 107–149; BP diastolic 60–77
[2022-11-27] MEDS: fentaNYL INJ 100 MCG/2 ML AMP IV PRN ×5 (03:12→21:36)
[2022-11-27 06:01] LABS: BASOPHILS # (AUTO) 0.1 10^3/uL (0.0-0.1); BASOPHILS % (AUTO) 1 % (0-10); EOSINOPHILS # (AUTO) 0.2 10^3/uL (0.0-0.3); EOSINOPHILS % (AUTO) 1 % (0-10); HEMATOCRIT 33 % (40-54); HEMOGLOBIN 11.2 g/dL (13.3-17.7); LYMPHOCYTES % (AUTO) 12 % (12-44); MEAN CORPUSCULAR HEMOGLOBIN 31 pg (25-34); MEAN CORPUSCULAR HGB CONC 34 g/dL (32-36); MEAN CORPUSCULAR VOLUME 89 fL (80-99); MEAN PLATELET VOLUME 11.2 fL (9.0-12.2); MONOCYTES # (AUTO) 0.9 10^3/uL (0.0-1.0); MONOCYTES % (AUTO) 5 % (0-12); NEUTROPHILS # (AUTO) 12.9 10^3/uL (1.8-7.8); NEUTROPHILS % (AUTO) 77 % (42-75); PLATELET COUNT 346 10^3/uL (130-400); WHITE BLOOD COUNT 16.7 10^3/uL (4.3-11.0)
[2022-11-27] MEDS ORDERED: NON-FORMULARY MEDICATION 1 EA EA (Tirzepatide (Mounjaro) 7.5 MG) SQ SCH (06:15)
[2022-11-27 06:36] LABS: ALBUMIN 3.1 GM/DL (3.2-4.5); BILIRUBIN,TOTAL 0.4 MG/DL (0.1-1.0); CALCIUM 9.4 MG/DL (8.5-10.1); CREATININE SERUM 1.27 MG/DL (0.60-1.30); POTASSIUM 3.4 MMOL/L (3.6-5.0); TOTAL PROTEIN 6.9 GM/DL (6.4-8.2)
--- NOTE | 2022-11-27 07:10 | Progress Note - Hospitalist ---
Subjective HPI/CC On Admission Date Seen by Provider: Nov 27, 2022 Time Seen by Provider: 11:00 CC: Left leg cellulitis HPI: This is a 52-year-old male who presented with left leg cellulitis. The severity of it required IV antibiotics. Dr. Santiago will be consulted in case abscess formation has occurred. Patient denies any new issues since admission. Venous Doppler did not show any DVT although D-dimer was elevated so he will be maintained on DVT prophylaxis. Subjective/Events-last exam Patient doing a little better Left leg is less red Less pain Appreciate Dr. Santiago Review of Systems General: Fatigue, Malaise Musculoskeletal: leg pain Focused Exam Lactate Level 11/25/22 17:00: Lactic Acid Level 1.92 Objective Exam Vital Signs Vital Signs Date Time Temp Pulse Resp B/P (MAP) Pulse Ox O2 Delivery O2 Flow Rate FiO2 11/27/22 15:58 36.4 87 16 149/74 (99) 97 Room Air 11/26/22 07:47 2.00 Capillary Refill : Less Than 3 Seconds General Appearance: No Apparent Distress, WD/WN, Chronically ill Respiratory: Lungs Clear, Normal Breath Sounds Cardiovascular: Regular Rate, Rhythm Extremity: Other (Left leg less erythema) Neurologic/Psychiatric: Alert, Oriented x3, No Motor/Sensory Deficits, Normal Mood/Affect Results/Procedures Lab Laboratory Tests 11/27/22 05:37 Patient resulted labs reviewed. Assessment/Plan Assessment and Plan Assess & Plan/Chief Complaint Assessment: Severe left leg cellulitis Diabetes Obesity NOELLE on CPAP Plan: IV antibiotics Dr. Santiago consult Lovenox for DVT prophylaxis DAVID LEVINE DO Nov 27, 2022 07:10
[2022-11-27] MEDS: PREGABALIN 150 MG (LYRICA) CAPSULE PO SCH ×2 (08:03→19:25)
[2022-11-27] MEDS: LORATADINE (CLARITIN) 10 MG TAB PO SCH (08:03)
[2022-11-27] MEDS: ASPIRIN E.C. 81 MG (ECOTRIN) TAB PO SCH (08:03)
[2022-11-27] MEDS: HYDROcodone/APAP 5 MG/325 MG (LORTAB) TAB PO PRN ×3 (08:03→22:44)
[2022-11-27] MEDS: amLODIPine 10 MG (NORVASC) TAB PO SCH (08:04)
[2022-11-27] MEDS: PANTOPRAZOLE 40 MG (PROTONIX) TAB PO SCH (08:04)
[2022-11-27] MEDS: CYANOCOBALAMIN 1,000 MCG (VITAMIN B-12) TABLET PO SCH (08:04)
[2022-11-27] MEDS: DULoxetine 30 MG (CYMBALTA) CAP PO SCH (08:04)
[2022-11-27] MEDS: metFORMIN 500 MG (GLUCOPHAGE) TAB PO SCH ×2 (08:04→16:18)
[2022-11-27] MEDS: VITAMIN D3 25 MCG (1,000 UNITS) TABLET PO SCH (08:04)
[2022-11-27] MEDS: KCL 20 MEQ TAB (K-DUR) PO SCH ×3 (08:05→16:18)
[2022-11-27] MEDS: ENOXAPARIN 40 MG/0.4 ML (LOVENOX) SYR SC SCH ×2 (11:38→22:44)
[2022-11-27] MEDS: inSUlin ASPART (NovoLOG) 1 UNIT/0.01 ML (CHARGE PER UNIT) SC SCH ×2 (11:39→16:17)
[2022-11-27] MEDS ORDERED: TROUGH ORDER-PHARMACY XX ONE (15:00)
--- NOTE | 2022-11-27 15:13 | Progress Note - Surgery ---
Subjective Time Seen by a Provider: 10:51 Subjective/Events-last exam Pt seen and examined, states he is about the same as yesterday. Minimal pain and his main question is when can he work without restriction. Tolerating diet. Review of Systems Pulmonary: No Dyspnea, No Cough Cardiovascular: No: Chest Pain, Palpitations Gastrointestinal: No: Nausea, Vomiting, Abdominal Pain Musculoskeletal: leg pain Focused Exam Lactate Level 11/25/22 17:00: Lactic Acid Level 1.92 Objective Exam Vital Signs Date Time Temp Pulse Resp B/P (MAP) Pulse Ox O2 Delivery O2 Flow Rate FiO2 11/27/22 11:39 36.7 88 18 125/70 (88) 96 Room Air 11/27/22 08:29 36.6 82 18 107/70 (82) 95 Room Air 11/27/22 08:00 Room Air 11/27/22 03:08 36.1 90 18 111/60 (77) 94 Room Air 11/27/22 00:06 36.0 92 20 119/61 (80) 95 NIV CPAP 11/26/22 20:52 Room Air 11/26/22 19:35 37.3 94 18 121/72 (88) 95 Room Air 11/26/22 15:48 36.7 82 20 135/74 (94) 98 Room Air I & O 11/27/22 07:00 Intake Total 3410 ml Output Total 400 ml Balance 3010 ml Capillary Refill : Less Than 3 Seconds General Appearance: No Apparent Distress, Chronically ill HEENT: PERRL/EOMI Respiratory: Lungs Clear, Normal Breath Sounds, No Accessory Muscle Use, No Respiratory Distress Cardiovascular: Regular Rate, Rhythm, No Murmur Gastrointestinal: non tender, soft, no organomegaly, hernia Extremity: Calf Tenderness, Inflammation, Pedal Edema, Other (looks about same as yesterday, erythema has not spread) Neurologic/Psychiatric: Alert, Oriented x3, Other (flat affect) Results Lab Laboratory Tests 11/26/22 19:15: Glucometer 161H 11/27/22 05:37: White Blood Count 16.7H, Red Blood Count 3.67L, Hemoglobin 11.2L, Hematocrit 33L , Mean Corpuscular Volume 89, Mean Corpuscular Hemoglobin 31, Mean Corpuscular Hemoglobin Concent 34, Red Cell Distribution Width 13.2, Platelet Count 346, Mean Platelet Volume 11.2, Immature Granulocyte % (Auto) 4, Neutrophils (%) (Auto) 77H, Lymphocytes (%) (Auto) 12, Monocytes (%) (Auto) 5, Eosinophils (%) (Auto) 1, Basophils (%) (Auto) 1, Neutrophils # (Auto) 12.9H, Lymphocytes # (Auto) 2.0, Monocytes # (Auto) 0.9, Eosinophils # (Auto) 0.2, Basophils # (Auto) 0.1, Immature Granulocyte # (Auto) 0.6H, Sodium Level 136, Potassium Level 3.4L, Chloride Level 97L, Carbon Dioxide Level 29, Anion Gap 10, Blood Urea Nitrogen 16, Creatinine 1.27, Estimat Glomerular Filtration Rate 68, BUN/Creatinine Ratio 13, Glucose Level 197H, Calcium Level 9.4, Corrected Calcium 10.1, Total Bilirubin 0.4, Aspartate Amino Transf (AST/SGOT) 19, Alanine Aminotransferase (ALT/SGPT) 21, Alkaline Phosphatase 91, Total Protein 6.9, Albumin 3.1L 11/27/22 05:54: Glucometer 172H 11/27/22 09:41: Glucometer 201H 11/27/22 14:13: Glucometer 132H 11/27/22 14:53: Microbiology 11/25/22 Blood Culture - Preliminary, Resulted No growth 11/25/22 Urine Culture - Final, Complete Growth Consistent Assessment/Plan Assessment/Plan Assessment/Plan Left leg Cellulitis and edema DM and HTN Leukocytosis Hyponatremia Hypokalemia Acute renal insufficiency Pt's edema and erythema of the left lower leg has not changed; WBC has come down to 16.7K. CT of the left leg did not find a fluid collection (indicating abscess) or any subcutaneous air/gas. Continue ABX, IV fluids, pain control and max medical management. I told pt to elevate leg above heart when he is lying down in bed. All questions answered to his satisfaction. He is currently getting electrolyte replacement and needs to be on free water restriction. Will monitor labs. IVET REDDY DO Nov 27, 2022 15:13
[2022-11-27] MEDS: VANCOMYCIN 1250 MG/NS 250 ML PREMIX IV SCH ×2 (16:12→22:44)
[2022-11-27] MEDS: cefTRIAXone 1 GM/NS 50 ML IVPB IV SCH ×2 (16:18)
[2022-11-27] MEDS: ROSUVASTATIN 10 MG (CRESTOR) TABLET PO SCH (19:25)
--- NOTE | 2022-11-28 06:22 | Progress Note - Hospitalist ---
Subjective HPI/CC On Admission Date Seen by Provider: Nov 28, 2022 Time Seen by Provider: 09:00 CC: Left leg cellulitis HPI: This is a 52-year-old male who presented with left leg cellulitis. The severity of it required IV antibiotics. Dr. Santiago will be consulted in case abscess formation has occurred. Patient denies any new issues since admission. Venous Doppler did not show any DVT although D-dimer was elevated so he will be maintained on DVT prophylaxis. Subjective/Events-last exam Patient doing much better Left leg much Pain is controlled We will ambulate today just been laying in bed Maintained on Lovenox Review of Systems General: Fatigue, Malaise Musculoskeletal: leg pain Focused Exam Lactate Level 11/25/22 17:00: Lactic Acid Level 1.92 Objective Exam Vital Signs Vital Signs Date Time Temp Pulse Resp B/P (MAP) Pulse Ox O2 Delivery O2 Flow Rate FiO2 11/28/22 11:23 36.9 76 20 125/72 (89) 97 Room Air 11/28/22 07:26 0.00 Capillary Refill : Less Than 3 Seconds General Appearance: No Apparent Distress, WD/WN, Chronically ill Respiratory: Lungs Clear, Normal Breath Sounds Cardiovascular: Regular Rate, Rhythm Extremity: Other (Less erythema left leg) Neurologic/Psychiatric: Alert, Oriented x3, No Motor/Sensory Deficits, Normal Mood/Affect Results/Procedures Lab Laboratory Tests 11/28/22 05:42 Patient resulted labs reviewed. Assessment/Plan Assessment and Plan Assess & Plan/Chief Complaint Assessment: Severe left leg cellulitis Diabetes Obesity NOELLE on CPAP Plan: IV antibiotics Dr. Santiago consult Lovenox for DVT prophylaxis DAVID LEVINE DO Nov 28, 2022 06:22
[2022-11-28 06:23] LABS: BASOPHILS # (AUTO) 0.1 10^3/uL (0.0-0.1); BASOPHILS % (AUTO) 1 % (0-10); EOSINOPHILS # (AUTO) 0.4 10^3/uL (0.0-0.3); EOSINOPHILS % (AUTO) 2 % (0-10); HEMATOCRIT 35 % (40-54); HEMOGLOBIN 11.6 g/dL (13.3-17.7); LYMPHOCYTES # (AUTO) 2.3 10^3/uL (1.0-4.0); LYMPHOCYTES % (AUTO) 14 % (12-44); MEAN CORPUSCULAR HEMOGLOBIN 30 pg (25-34); MEAN CORPUSCULAR HGB CONC 33 g/dL (32-36); MEAN CORPUSCULAR VOLUME 90 fL (80-99); MEAN PLATELET VOLUME 11.2 fL (9.0-12.2); MONOCYTES # (AUTO) 0.9 10^3/uL (0.0-1.0); MONOCYTES % (AUTO) 6 % (0-12); NEUTROPHILS # (AUTO) 11.2 10^3/uL (1.8-7.8); NEUTROPHILS % (AUTO) 71 % (42-75); PLATELET COUNT 398 10^3/uL (130-400); WHITE BLOOD COUNT 15.8 10^3/uL (4.3-11.0)
[2022-11-28] MEDS: fentaNYL INJ 100 MCG/2 ML AMP IV PRN ×4 (06:36→23:28)
[2022-11-28 06:41] LABS: ALBUMIN 3.1 GM/DL (3.2-4.5); BILIRUBIN,TOTAL 0.3 MG/DL (0.1-1.0); CALCIUM 9.7 MG/DL (8.5-10.1); CREATININE SERUM 1.08 MG/DL (0.60-1.30); POTASSIUM 3.7 MMOL/L (3.6-5.0); TOTAL PROTEIN 7.3 GM/DL (6.4-8.2)
[2022-11-28] MEDS: CYANOCOBALAMIN 1,000 MCG (VITAMIN B-12) TABLET PO SCH (06:41)
[2022-11-28 07:30] VITALS: BP 119/73
[2022-11-28] MEDS: inSUlin ASPART (NovoLOG) 1 UNIT/0.01 ML (CHARGE PER UNIT) SC SCH ×3 (07:42→15:57)
[2022-11-28] MEDS: ASPIRIN E.C. 81 MG (ECOTRIN) TAB PO SCH (07:42)
[2022-11-28] MEDS: PREGABALIN 150 MG (LYRICA) CAPSULE PO SCH ×2 (07:42→20:33)
[2022-11-28] MEDS: VANCOMYCIN 1250 MG/NS 250 ML PREMIX IV SCH ×3 (07:42→23:28)
[2022-11-28] MEDS: DULoxetine 30 MG (CYMBALTA) CAP PO SCH (07:42)
[2022-11-28] MEDS: VITAMIN D3 25 MCG (1,000 UNITS) TABLET PO SCH (07:43)
[2022-11-28] MEDS: KCL 20 MEQ TAB (K-DUR) PO SCH ×3 (07:48→17:11)
[2022-11-28] MEDS: PANTOPRAZOLE 40 MG (PROTONIX) TAB PO SCH (07:48)
[2022-11-28] MEDS: amLODIPine 10 MG (NORVASC) TAB PO SCH (07:48)
[2022-11-28] MEDS: LORATADINE (CLARITIN) 10 MG TAB PO SCH (07:48)
[2022-11-28] MEDS: metFORMIN 500 MG (GLUCOPHAGE) TAB PO SCH ×2 (07:48→17:11)
[2022-11-28] MEDS: ENOXAPARIN 40 MG/0.4 ML (LOVENOX) SYR SC SCH ×2 (10:46→23:28)
[2022-11-28] MEDS: HYDROcodone/APAP 5 MG/325 MG (LORTAB) TAB PO PRN ×2 (11:15→20:33)
[2022-11-28 11:23] VITALS: BP 125/72
--- NOTE | 2022-11-28 13:36 | Progress Note - Surgery ---
Subjective Time Seen by a Provider: 11:16 Subjective/Events-last exam Pt seen and examined, he thinks the leg is about the same. Minimal pain, he is ambulating and when in bed elevating leg. Review of Systems HEENT: No Head Aches, No Visual Changes Pulmonary: No Dyspnea, No Cough Cardiovascular: No: Chest Pain Gastrointestinal: No: Nausea, Vomiting, Abdominal Pain Musculoskeletal: leg pain Focused Exam Lactate Level 11/25/22 17:00: Lactic Acid Level 1.92 Objective Exam Vital Signs Date Time Temp Pulse Resp B/P (MAP) Pulse Ox O2 Delivery O2 Flow Rate FiO2 11/28/22 11: 36.9 76 20 125/72 (89) 97 Room Air 11/28/22 08:00 Room Air 11/28/22 07:30 36.0 85 18 119/73 (88) 99 Room Air 11/28/22 07:26 95 Room Air 0.00 11/27/22 23:03 36.2 77 20 142/77 (98) 96 Room Air 11/27/22 20:46 36.1 93 18 121/74 (90) 95 Room Air 11/27/22 19:32 Room Air 11/27/22 15:58 36.4 87 16 149/74 (99) 97 Room Air I & O 11/28/22 07:00 Intake Total 2497 ml Output Total 500 ml Balance 1997 ml Capillary Refill : Less Than 3 Seconds General Appearance: No Apparent Distress, Obese HEENT: PERRL/EOMI Respiratory: Lungs Clear, Normal Breath Sounds, No Accessory Muscle Use, No Respiratory Distress Cardiovascular: Regular Rate, Rhythm, No Murmur Gastrointestinal: non tender, soft, no organomegaly, hernia Extremity: Pedal Edema, Other (Left leg less erythema, but may have more edema compared to yesterday) Neurologic/Psychiatric: Alert, Oriented x3 Results Lab Laboratory Tests 11/27/22 14:13: Glucometer 132H 11/27/22 14:53: Vancomycin Level Trough 5.3L 11/27/22 19:32: Glucometer 131H 11/28/22 05:42: White Blood Count 15.8H, Red Blood Count 3.90L, Hemoglobin 11.6L, Hematocrit 35L , Mean Corpuscular Volume 90, Mean Corpuscular Hemoglobin 30, Mean Corpuscular Hemoglobin Concent 33, Red Cell Distribution Width 13.2, Platelet Count 398, Mean Platelet Volume 11.2, Immature Granulocyte % (Auto) 6, Neutrophils (%) (Auto) 71, Lymphocytes (%) (Auto) 14, Monocytes (%) (Auto) 6, Eosinophils (%) (Auto) 2, Basophils (%) (Auto) 1, Neutrophils # (Auto) 11.2H, Lymphocytes # (Auto) 2.3, Monocytes # (Auto) 0.9, Eosinophils # (Auto) 0.4H, Basophils # (Auto) 0.1, Immature Granulocyte # (Auto) 0.9H, Sodium Level 137, Potassium Level 3.7, Chloride Level 96L, Carbon Dioxide Level 30, Anion Gap 11, Blood Urea Nitrogen 15, Creatinine 1.08, Estimat Glomerular Filtration Rate 83, BUN/Creatinine Ratio 14, Glucose Level 146H, Calcium Level 9.7, Corrected Calcium 10.4H, Total Bilirubin 0.3, Aspartate Amino Transf (AST/SGOT) 26, Alanine Aminotransferase (ALT/SGPT) 24, Alkaline Phosphatase 97, Total Protein 7.3, Albumin 3.1L 11/28/22 09:27: Glucometer 142H Microbiology 11/25/22 Blood Culture - Preliminary, Resulted No growth 11/25/22 Urine Culture - Final, Complete Growth Consistent Assessment/Plan Assessment/Plan Assessment/Plan Left leg Cellulitis and edema DM and HTN Leukocytosis Hyponatremia - resolved Hypokalemia - resolved Acute renal insufficiency - resolved Pt's edema and erythema of the left lower leg has not changed; WBC has come down to 15.8K. CT of the left leg did not find a fluid collection (indicating abscess) or any subcutaneous air/gas. Continue ABX, IV fluids, pain control and max medical management. His leg is not really worse, but not better and doesn't seem to be improving much. Still nothing surgical to do at this point, will monitor. IVET REDDY DO Nov 28, 2022 13:36
[2022-11-28] MEDS ORDERED: TROUGH ORDER-PHARMACY XX NR (15:00)
[2022-11-28 16:04] VITALS: BP 131/80
[2022-11-28] MEDS: cefTRIAXone 1 GM/NS 50 ML IVPB IV SCH ×2 (17:11)
[2022-11-28 20:16] VITALS: BP 145/74
[2022-11-28] MEDS: ROSUVASTATIN 10 MG (CRESTOR) TABLET PO SCH (20:33)
[2022-11-28 23:53] VITALS: BP 150/69
[2022-11-29 03:38] VITALS: BP 132/71
[2022-11-29] MEDS: HYDROcodone/APAP 5 MG/325 MG (LORTAB) TAB PO PRN ×2 (03:48→08:37)
[2022-11-29] MEDS: fentaNYL INJ 100 MCG/2 ML AMP IV PRN ×3 (03:48→13:51)
[2022-11-29 06:29] LABS: ALBUMIN 3.3 GM/DL (3.2-4.5); BASOPHILS # (AUTO) 0.2 10^3/uL (0.0-0.1); BASOPHILS % (AUTO) 1 % (0-10); EOSINOPHILS # (AUTO) 0.4 10^3/uL (0.0-0.3); EOSINOPHILS % (AUTO) 3 % (0-10); HEMATOCRIT 38 % (40-54); HEMOGLOBIN 12.4 g/dL (13.3-17.7); LYMPHOCYTES # (AUTO) 2.8 10^3/uL (1.0-4.0); LYMPHOCYTES % (AUTO) 17 % (12-44); MEAN CORPUSCULAR HEMOGLOBIN 30 pg (25-34); MEAN CORPUSCULAR HGB CONC 33 g/dL (32-36); MEAN CORPUSCULAR VOLUME 90 fL (80-99); MEAN PLATELET VOLUME 11.4 fL (9.0-12.2); MONOCYTES # (AUTO) 0.8 10^3/uL (0.0-1.0); MONOCYTES % (AUTO) 5 % (0-12); NEUTROPHILS # (AUTO) 11.3 10^3/uL (1.8-7.8); NEUTROPHILS % (AUTO) 68 % (42-75); PLATELET COUNT 448 10^3/uL (130-400); POTASSIUM 4.1 MMOL/L (3.6-5.0); WHITE BLOOD COUNT 16.7 10^3/uL (4.3-11.0)
[2022-11-29] MEDS: CYANOCOBALAMIN 1,000 MCG (VITAMIN B-12) TABLET PO SCH (06:29)
[2022-11-29 06:30] LABS: CALCIUM 10.5 MG/DL (8.5-10.1)
[2022-11-29 06:31] LABS: TOTAL PROTEIN 7.9 GM/DL (6.4-8.2)
[2022-11-29 06:33] LABS: BILIRUBIN,TOTAL 0.3 MG/DL (0.1-1.0)
[2022-11-29 06:35] LABS: CREATININE SERUM 1.15 MG/DL (0.60-1.30)
[2022-11-29 07:51] VITALS: BP 110/62
[2022-11-29] MEDS ORDERED: VANCOMYCIN 1250 MG/NS 250 ML PREMIX IV SCH (08:00)
[2022-11-29] MEDS: inSUlin ASPART (NovoLOG) 1 UNIT/0.01 ML (CHARGE PER UNIT) SC SCH ×2 (08:36→11:31)
[2022-11-29] MEDS: metFORMIN 500 MG (GLUCOPHAGE) TAB PO SCH (08:36)
[2022-11-29] MEDS: LORATADINE (CLARITIN) 10 MG TAB PO SCH (08:36)
[2022-11-29] MEDS: PANTOPRAZOLE 40 MG (PROTONIX) TAB PO SCH (08:36)
[2022-11-29] MEDS: DULoxetine 30 MG (CYMBALTA) CAP PO SCH (08:36)
[2022-11-29] MEDS: PREGABALIN 150 MG (LYRICA) CAPSULE PO SCH (08:36)
[2022-11-29] MEDS: amLODIPine 10 MG (NORVASC) TAB PO SCH (08:36)
[2022-11-29] MEDS: VITAMIN D3 25 MCG (1,000 UNITS) TABLET PO SCH (08:36)
[2022-11-29] MEDS: KCL 20 MEQ TAB (K-DUR) PO SCH ×2 (08:36→11:31)
[2022-11-29] MEDS: ASPIRIN E.C. 81 MG (ECOTRIN) TAB PO SCH (08:37)
[2022-11-29] MEDS ORDERED: CEPH500T PO (10:37)
[2022-11-29] MEDS ORDERED: ACHD5005 PO (10:37)
--- NOTE | 2022-11-29 10:38 | Discharge Summary ---
Discharge Summary Hospital Course Was the Problem List Reviewed?: Yes Problems/Dx: (1) Left leg cellulitis Status: Acute (2) Sepsis Status: Acute Qualifiers: Qualified Codes: A40.0 - Sepsis due to Streptococcus, group A Hospital Course Date of Admission: Nov 25, 2022 at 18:52 Admission Diagnosis : Family Physician/Provider: [facility] Date of Discharge: 11/29/22 Discharge Diagnosis: [ ] Hospital Course: Uneventful hospital course after he was admitted for left leg cellulitis. Doppler revealed no DVT. Lovenox maintained for DVT PPx. IV abx maintained with improved results. Dr Santiago consulted and CT revealed no deep abscess. He was able to DC and had improved condition. WBC remained slightly elevated but assume that will normalize as clinical status improves. Labs and Pending Lab Test: Laboratory Tests 11/28/22 14:28: Glucometer 86 11/28/22 15:05: Vancomycin Level Trough 18.9 11/28/22 20:11: Glucometer 106 11/29/22 05:21: White Blood Count 16.7H, Red Blood Count 4.16L, Hemoglobin 12.4L, Hematocrit 38L , Mean Corpuscular Volume 90, Mean Corpuscular Hemoglobin 30, Mean Corpuscular Hemoglobin Concent 33, Red Cell Distribution Width 12.9, Platelet Count 448H, Mean Platelet Volume 11.4, Immature Granulocyte % (Auto) 7, Neutrophils (%) (Auto) 68, Lymphocytes (%) (Auto) 17, Monocytes (%) (Auto) 5, Eosinophils (%) (Auto) 3, Basophils (%) (Auto) 1, Neutrophils # (Auto) 11.3H, Lymphocytes # (Auto) 2.8, Monocytes # (Auto) 0.8, Eosinophils # (Auto) 0.4H, Basophils # (Auto) 0.2H, Immature Granulocyte # (Auto) 1.2H, Sodium Level 135, Potassium Level 4.1, Chloride Level 94L, Carbon Dioxide Level 30, Anion Gap 11, Blood Urea Nitrogen 16, Creatinine 1.15, Estimat Glomerular Filtration Rate 77, BUN/Creatinine Ratio 14, Glucose Level 121H, Calcium Level 10.5H, Corrected Calcium 11.1H, Total Bilirubin 0.3, Aspartate Amino Transf (AST/SGOT) 20, Alanine Aminotransferase (ALT/SGPT) 26, Alkaline Phosphatase 91, Total Protein 7.9, Albumin 3.3 6/12/23 05:58: Glucometer 117H 11/29/22 10:26: Glucometer 132H Microbiology 11/25/22 Blood Culture - Preliminary, Resulted No growth 11/25/22 Urine Culture - Final, Complete Growth Consistent Home Meds Active Cephalexin 500 Mg Tablet 500 Mg PO TID Reported Vitamin B-12 (Cyanocobalamin (Vitamin B-12)) 5,000 Mcg Capsule 5,000 Mcg PO DAILY Cetirizine HCl 10 Mg Tablet 10 Mg PO DAILY Vitamin D3 (Cholecalciferol (Vitamin D3)) 25 Mcg (1000 Unit) Tablet 25 Mcg PO DAILY Aspirin EC (Aspirin) 81 Mg Tablet.dr 81 Mg PO DAILY Amlodipine Besylate 10 Mg Tablet 10 Mg PO DAILY Hydrochlorothiazide 25 Mg Tablet 25 Mg PO DAILY Pregabalin 150 Mg Capsule 150 Mg PO BID Metformin HCl 1,000 Mg Tablet 1,000 Mg PO BID Duloxetine HCl 60 Mg Capsule.dr 60 Mg PO DAILY Insulin Lispro Kwikpen U-100 (Insulin Lispro) 100 Unit/Ml Insuln.pen 11 Units SC AC Bactrim Ds Tablet (Sulfamethoxazole/Trimethoprim) 800 Mg-160 Mg Tablet 1 Ea PO BID FILLED 11-23-2022 #20/10 DAY SUPPLY Mounjaro (Tirzepatide) 7.5 Mg/0.5 Ml Pen.injctr 7.5 Mg SQ WED Levemir Flexpen (Insulin Detemir) 100 Unit/Ml (3 Ml) Insuln.pen 65 Units SC HS Rosuvastatin Calcium 10 Mg Tablet 10 Mg PO HS Pantoprazole Sodium 40 Mg Tablet.dr 40 Mg PO DAILY Assessment/Pt Instructions PCP 1 week Discharge Planning: <30 minutes discharge planning Discharge Instructions Discharge Diet: ADA Diet Discharge Physical Examination Vital Signs Vital Signs Date Time Temp Pulse Resp B/P (MAP) Pulse Ox O2 Delivery O2 Flow Rate FiO2 11/29/22 07:51 36.4 72 20 110/62 (78) 93 Room Air 11/29/22 03:38 0.00 0.00 General Appearance: No Apparent Distress, WD/WN Skin: Other (improved left leg cellulitis) Allergies: Coded Allergies: codeine (Verified Allergy, Unknown, 10/11/08) Discharge Summary Date of Admission Nov 25, 2022 at 18:52 Date of Discharge Discharge Date: Nov 29, 2022 Admission Diagnosis Assessment: Severe left leg cellulitis Diabetes Obesity NOELLE on CPAP Plan: IV antibiotics Dr. Santiago consult Lovenox for DVT prophylaxis Discharge Diagnosis Assessment: Severe left leg cellulitis Diabetes Obesity NOELLE on CPAP Plan: IV antibiotics Dr. Santiago consult Lovenox for DVT prophylaxis DAVID LEVINE DO Nov 29, 2022 10:38
[2022-11-29] MEDS: ENOXAPARIN 40 MG/0.4 ML (LOVENOX) SYR SC SCH (11:31)
[2022-11-29 11:48] VITALS: BP 122/68
[2022-11-29 14:50] VITALS: BP 122/68
[2022-11-30] MEDS ORDERED: TROUGH ORDER-PHARMACY XX ONE (07:00)
== END 2022-11-29 14:52 | disposition home or self-care (01) | DRG 872 ==
LOC: EDUNIT# 15:24 → ER 15:32 → 4TH 18:52
PROVIDERS: ADMIT Family Medicine; ATTEND Internal Medicine
DX: A40.0 Sepsis due to streptococcus, group A (principal); L03.116 Cellulitis of left lower limb; E87.1 Hypo-osmolality and hyponatremia; Z68.41 Body mass index [BMI] 40.0-44.9, adult; E87.6 Hypokalemia; I10 Essential (primary) hypertension; E11.40 Type 2 diabetes mellitus with diabetic neuropathy, unspecified; N28.9 Disorder of kidney and ureter, unspecified; G47.33 Obstructive sleep apnea (adult) (pediatric); E66.9 Obesity, unspecified; F17.220 Nicotine dependence, chewing tobacco, uncomplicated; Z79.84 Long term (current) use of oral hypoglycemic drugs; Z79.4 Long term (current) use of insulin; Z79.82 Long term (current) use of aspirin; Z79.899 Other long term (current) drug therapy; Z88.5 Allergy status to narcotic agent
CPT/HCPCS: 36415; 71045; 73701; 80048; 80053; 80202; 81000; 82947; 83605; 85007; 85025; 85027; 85379; 85610; 85730; 86141; 87040; 87088; 94760

== ENCOUNTER → 2022-12-08 | Outpatient (CLI) | payer MEDICAID ==
[~2022-12-08] MED LIST changes: +ACHD5005 PO; +AMLO-251 PO; +ASPI-1238 PO; +CEPH500T PO; +CETI10TA17 PO; +CHOL-34 PO; +CYAN500011 PO; +DULO60CA59 PO; +HYDR25TA4 PO; +INSU100I48 SC; +INSU100I88 SC; +METF-399 PO; +PANT40TA52 PO; +PREG150C46 PO; +ROSU10TA28 PO; +SULF-221 PO; +TIRZ7.5P SQ
== END ==
LOC: WOUNDCARE 12:34
PROVIDERS: ATTEND Family Medicine
DX: L03.116 Cellulitis of left lower limb (principal); L97.321 Non-pressure chronic ulcer of left ankle limited to breakdown of skin; E11.622 Type 2 diabetes mellitus with other skin ulcer; E11.65 Type 2 diabetes mellitus with hyperglycemia; E11.40 Type 2 diabetes mellitus with diabetic neuropathy, unspecified; E66.01 Morbid (severe) obesity due to excess calories; I89.0 Lymphedema, not elsewhere classified; Z68.41 Body mass index [BMI] 40.0-44.9, adult; E11.52 Type 2 diabetes mellitus with diabetic peripheral angiopathy with gangrene
CPT/HCPCS: 99213

== ENCOUNTER → 2022-12-16 | Outpatient (CLI) | payer MEDICAID | LOC: WOUNDCARE 09:53 | PROVIDERS: ATTEND Family Medicine | DX: E11.622 Type 2 diabetes mellitus with other skin ulcer (principal); E11.65 Type 2 diabetes mellitus with hyperglycemia; E11.40 Type 2 diabetes mellitus with diabetic neuropathy, unspecified; E11.52 Type 2 diabetes mellitus with diabetic peripheral angiopathy with gangrene; I89.0 Lymphedema, not elsewhere classified; E66.01 Morbid (severe) obesity due to excess calories; L97.321 Non-pressure chronic ulcer of left ankle limited to breakdown of skin; L03.116 Cellulitis of left lower limb; Z68.41 Body mass index [BMI] 40.0-44.9, adult | CPT/HCPCS: 11042 ==

== ENCOUNTER → 2022-12-23 | Outpatient (CLI) | payer MEDICAID | LOC: WOUNDCARE 10:22 | PROVIDERS: ATTEND Family Medicine | DX: L97.321 Non-pressure chronic ulcer of left ankle limited to breakdown of skin (principal); L03.116 Cellulitis of left lower limb; E11.622 Type 2 diabetes mellitus with other skin ulcer; E11.65 Type 2 diabetes mellitus with hyperglycemia; E11.40 Type 2 diabetes mellitus with diabetic neuropathy, unspecified; E66.01 Morbid (severe) obesity due to excess calories; Z68.41 Body mass index [BMI] 40.0-44.9, adult; I89.0 Lymphedema, not elsewhere classified | CPT/HCPCS: 99212 ==